=== PATIENT | female | born 1965 | race Hispanic/Latino ===

== ENCOUNTER 2017-08-13 16:43 | Emergency (ER) | payer OTHER ==
[2017-08-13 16:44] VITALS: BMI 20.8
[2017-08-13 16:51] VITALS: RESP 16; TEMP 98; O2SAT 100
--- NOTE | 2017-08-13 18:17 | ED PDOC ---
HPI: Head Injury Time Seen by Provider: 08/13/17 17:11 Chief Complaint (Nursing): Headache Chief Complaint (Provider): Head injury, neck injury History Per: Patient History/Exam Limitations: no limitations Injury Occurred (Timing): Just Before Arrival Patient States: Fell Striking Head Additional Complaint(s): Lexus Warren is a 52-year-old female with a past medical history of multiple sclerosis who was brought to the Emergency Department via EMS for evaluation of a head injury s/p fall earlier today. Patient arrived with c-collar in place. She states she tripped over a concrete barrier, attempted to regain balance and fell striking back of head on the ground. Patient remembers falling but the next thing she remembers is people standing over her asking if she is ok. Currently she complains of pain to the posterior head, but denies any nausea , vision changes, dizziness, back pain, or other injury. Patient denies dizziness or syncope prior to fall. PMD: Dr. Arvizu Past Medical History Reviewed: Historical Data, Nursing Documentation, Vital Signs Vital Signs: Last Vital Signs Temp 98.0 F 08/13/17 16:46 Pulse 75 08/13/17 16:46 Resp 16 08/13/17 16:46 BP 145/103 H 08/13/17 16:46 Pulse Ox 100 08/13/17 16:46 - Medical History PMH: Back Problems (herniated disc), Multiple Sclerosis (Since 1988) - Surgical History Surgical History: Tonsillectomy (and adenoids) - Family History Family History: States: No Known Family Hx - Living Arrangements Living Arrangements: With Family - Social History Current smoker - smoking cessation education provided: No Drugs: Cannabis (uses medicinal marijuana) - Home Medications Home Medications: Ambulatory Orders Medication Instructions Recorded Aspirin [Aspirin Chewable] 81 mg PO DAILY 10/21/15 Escitalopram [Lexapro] 10 mg PO DAILY 10/21/15 Modafinil [Provigil] 50 mg PO DAILY 10/21/15 Naproxen 375 mg PO Q8 PRN #21 tab 10/21/15 Albuterol 0.083% [Albuterol 0.083% 2.5 mg IH Q4 PRN #20 neb 05/09/16 Inhal Kalie (2.5 mg/3 ml) UD] Albuterol HFA [Ventolin HFA 90 1 - 2 puff IH Q4 PRN #1 inhaler 05/09/16 mcg/actuation (8 g)] Levofloxacin [Levaquin] 500 mg PO BID #14 tablet 05/09/16 Prednisone 50 mg PO DAILY #4 tab 05/09/16 - Allergies Allergies/Adverse Reactions: Allergies Allergy/AdvReac Type Severity Reaction Status Date / Time No Known Allergies Allergy Verified 08/13/17 16:46 Review of Systems ROS Statement: Except As Marked, All Systems Reviewed And Found Negative Eyes: Negative for: Vision Change Gastrointestinal: Negative for: Nausea, Vomiting Musculoskeletal: Positive for: Neck Pain. Negative for: Back Pain Neurological: Positive for: Headache (head injury with LOC). Negative for: Weakness, Numbness, Incoordination, Change in Speech, Confusion, Seizures, Altered Mental Status, Dizziness Physical Exam - Reviewed Nursing Documentation Reviewed: Yes Vital Signs Reviewed: Yes - Physical Exam Appears: Positive for: Well, Non-toxic, No Acute Distress Head Exam: Positive for: NORMOCEPHALIC (with contusion noted to the posterior scalp. No open wound) Skin: Positive for: Normal Color Eye Exam: Positive for: Normal appearance, EOMI, PERRL Neck: Positive for: Limited ROM (C-collar in place; Midline tenderness to midline of c-spine) Cardiovascular/Chest: Positive for: Regular Rate, Rhythm. Negative for: Murmur Respiratory: Positive for: Normal Breath Sounds. Negative for: Accessory Muscle Use, Respiratory Distress Gastrointestinal/Abdominal: Positive for: Normal Exam, Soft. Negative for: Tenderness Back: Positive for: Normal Inspection. Negative for: Vertebral Tenderness ( other than c-spine) Extremity: Positive for: Normal ROM Neurologic/Psych: Positive for: Alert, Oriented (x3). Negative for: Motor/ Sensory Deficits - ECG O2 Sat by Pulse Oximetry: 100 (RA) Pulse Ox Interpretation: Normal - CT Scan/US CT cervical spine Other Rad Studies (CT/US): Read By Radiologist, Radiology Report Reviewed Other Rad Interpretation: No acute findings *see below* CT head Other Rad Studies (CT/US): Read By Radiologist, Radiology Report Reviewed Other Rad Interpretation: No acute intracranial pathology identified. *see below * Medical Decision Making Medical Decision Making: Initial Impression: 52-year-old female with head injury s/p fall Time: 18:16 Plan: CT Cervical Spine w/o contrast CT Head w/o contrast Patient offered medication for pain, but she declined CT Cervical Spine: FINDINGS: VERTEBRAE: No fracture. Normal alignment. No destructive bony lesion. Multilevel degenerative facet arthropathy predominantly left-sided. Degenerative facet arthropathy on the right side at C7-T1. DISCS/SPINAL CANAL/ NEURAL FORAMINA: No significant central canal or neural foraminal stenosis. Discs heights are grossly preserved. PARASPINAL SOFT TISSUES: Unremarkable. OTHER FINDINGS: None. IMPRESSION: No fracture/dislocation. Multilevel degenerative facet arthropathy. No evidence of degenerative disc disease. CT Head: FINDINGS: HEMORRHAGE: No intracranial hemorrhage. BRAIN: No mass effect or edema. Scattered periventricular and subcortical white matter hypodensities, which are nonspecific. The watkins-white matter differentiation appears otherwise intact. VENTRICLES: No hydrocephalus. CALVARIUM: Unremarkable. PARANASAL SINUSES: Unremarkable as visualized. No significant inflammatory changes. MASTOID AIR CELLS: Unremarkable as visualized. No inflammatory changes. OTHER FINDINGS: None. IMPRESSION: No acute intracranial pathology identified. Patient is aware of CT results. Collar was removed safely after CT cervical spine was reviewed. Patient was instructed to take Tylenol for pain as needed and follow up in 1-2 days with primary doctor. Patient is also aware that she can return to emergency department at any time if acutely worse. Repeat BP prior to discharge: 146/87 Scribe Attestation: Documented by Vivienne Saenz, acting as a scribe for Dania Cardoso PA-C Provider Scribe Attestation: All medical record entries made by the Scribe were at my direction and personally dictated by me. I have reviewed the chart and agree that the record accurately reflects my personal performance of the history, physical exam, medical decision making, and the department course for this patient. I have also personally directed, reviewed, and agree with the discharge instructions and disposition. Disposition - Clinical Impression Clinical Impression: Head injury, Cervical sprain - Patient ED Disposition Is Patient to be Admitted: No Counseled Patient/Family Regarding: Studies Performed, Diagnosis, Need For Followup - Disposition Referrals: Sreedhar Arvizu MD [Family Provider] - Disposition: Routine/Home Disposition Time: 19:22 Condition: STABLE Additional Instructions: Ice affected areas much as possible. Tylenol every 4-6 hours for pain as needed. Follow up with primary doctor in 1-2 days or return to the emergency department any time if acutely worse. Instructions: Head Injury (ED), Cervical Strain (DC) Forms: [employer] (Bulgarian)
--- NOTE | 2017-08-13 18:45 | CT ---
PROCEDURE: CT HEAD WITHOUT CONTRAST. HISTORY: trauma COMPARISON: None available. TECHNIQUE: Axial computed tomography images were obtained through the head/brain without intravenous contrast. Radiation dose: Total exam DLP = 890.24 mGy-cm. This CT exam was performed using one or more of the following dose reduction techniques: Automated exposure control, adjustment of the mA and/or kV according to patient size, and/or use of iterative reconstruction technique. FINDINGS: HEMORRHAGE: No intracranial hemorrhage. BRAIN: No mass effect or edema. Scattered periventricular and subcortical white matter hypodensities, which are nonspecific. The watkins-white matter differentiation appears otherwise intact. VENTRICLES: No hydrocephalus. CALVARIUM: Unremarkable. PARANASAL SINUSES: Unremarkable as visualized. No significant inflammatory changes. MASTOID AIR CELLS: Unremarkable as visualized. No inflammatory changes. OTHER FINDINGS: None. IMPRESSION: No acute intracranial pathology identified.
--- NOTE | 2017-08-13 18:45 | CT ---
PROCEDURE: CT Cervical Spine without contrast HISTORY: <fall> COMPARISON: None available. TECHNIQUE: Axial computed tomography images were obtained of the cervical spine without the use of intravenous contrast. Coronal and sagittal reformatted images were created and reviewed. Radiation dose: Total exam DLP = 385.53 mGy-cm. This CT exam was performed using one or more of the following dose reduction techniques: Automated exposure control, adjustment of the mA and/or kV according to patient size, and/or use of iterative reconstruction technique. FINDINGS: VERTEBRAE: No fracture. Normal alignment. No destructive bony lesion. Multilevel degenerative facet arthropathy predominantly left-sided. Degenerative facet arthropathy on the right side at C7-T1. DISCS/SPINAL CANAL/NEURAL FORAMINA: No significant central canal or neural foraminal stenosis. Discs heights are grossly preserved. PARASPINAL SOFT TISSUES: Unremarkable. OTHER FINDINGS: None. IMPRESSION: No fracture/dislocation. Multilevel degenerative facet arthropathy. No evidence of degenerative disc disease.
[2017-08-13 19:29] VITALS: BP 146/87; PULSE 62
== END 2017-08-13 19:30 | disposition home or self-care (01) ==
LOC: H.ER 16:43
DX: S09.90XA Unspecified injury of head, initial encounter (principal); S13.4XXA Sprain of ligaments of cervical spine, initial encounter; W01.0XXA Fall on same level from slipping, tripping and stumbling without subsequent striking against object, initial encounter; Y92.480 Sidewalk as the place of occurrence of the external cause; G35 Multiple sclerosis; Z79.82 Long term (current) use of aspirin